=== PATIENT | male | born 1955 | race Caucasian/White ===

== ENCOUNTER 2017-03-24 02:26 | Emergency (ER) | payer MEDICARE, MEDICAID ==
[2017-03-24] MEDS ORDERED: ATORVASTATIN CA20 MG PO (04:16)
[2017-03-24] MEDS ORDERED: GLIPIZIDE10 M2 PO (04:16)
[2017-03-24] MEDS ORDERED: RT ALBUTEROL CC18 GM IH (04:17)
[2017-03-24] MEDS ORDERED: ALBUTEROL2.5 MG/3 M IH (04:18)
[2017-03-24] MEDS ORDERED: MEXITIL 150MG150 MG PO (04:19)
[2017-03-24] MEDS ORDERED: RT SPIRIVA INH18 MCG IH (04:19)
[2017-03-24] MEDS ORDERED: LISINOPRIL10 MG PO (04:19)
[2017-03-24] MEDS ORDERED: PANTOPRAZOLE SO40 MG PO (04:20)
[2017-03-24] MEDS ORDERED: CARVEDILOL25 MG PO (04:20)
[2017-03-24] MEDS ORDERED: FUROSEMIDE40 MG (04:20)
[2017-03-24] MEDS ORDERED: CLOPIDOGREL75 M2 PO (04:21)
[2017-03-24] MEDS ORDERED: METFORMIN ER500 MG PO (04:21)
[2017-03-24] MEDS ORDERED: JANUVIA 100MG100 MG (04:21)
[2017-03-24] MEDS ORDERED: DALIRESP500 MCG PO (04:21)
[2017-03-24] MEDS ORDERED: ACETAMINOPHEN-H1 TA2 PO (04:22)
[2017-03-24] MEDS ORDERED: ASPIRIN ADULT L81 M3 PO (04:23)
[2017-03-24] MEDS ORDERED: SYMBICORT1 AE3 IH (04:23)
[2017-03-24] MEDS ORDERED: ACIDOPHILUS100 M1 PO (04:24)
[2017-03-24] MEDS ORDERED: ACETAMINOPHEN325 M1 (04:25)
== END 2017-03-24 20:35 | disposition expired ==
LOC: ED 02:28
DX: I46.9 Cardiac arrest, cause unspecified (principal); I49.9 Cardiac arrhythmia, unspecified; I50.22 Chronic systolic (congestive) heart failure; E11.9 Type 2 diabetes mellitus without complications; J44.9 Chronic obstructive pulmonary disease, unspecified; F17.200 Nicotine dependence, unspecified, uncomplicated; Z79.82 Long term (current) use of aspirin; Z79.02 Long term (current) use of antithrombotics/antiplatelets; Z79.84 Long term (current) use of oral hypoglycemic drugs; K21.9 Gastro-esophageal reflux disease without esophagitis